=== PATIENT | female | born 1945 | race Caucasian/White ===

== ENCOUNTER 2025-10-08 11:54 | Inpatient (IN) | payer MEDICARE, MEDICAID ==
[~2025-10-08] VITALS: Ht 154.9 cm; Wt 68.1 kg
[2025-10-08 12:55] LABS: GLUCOMETER DEV NAME(LOC) ER.7; GLUCOSE,POINT OF CARE 161 MG/DL (70-110)
[2025-10-08] MEDS: SODIUM CHLORIDE 0.9% 1,000 ML IV ONE (13:08)
[2025-10-08 13:28] LABS: CALCIUM, TOTAL 8.5 mg/dL (8.8-10.5); CREATININE 1.29 mg/dL (0.60-1.30); GLOMERULAR FILTR. RATE CALC 40 mL/min (>60); GLUCOSE,RANDOM 174 mg/dL (70-110); SODIUM SERUM 133 mmol/L (136-145); UREA NITROGEN, BLOOD 38 mg/dL (7-18)
[2025-10-08 13:35] LABS: PLATELET COUNT (AUTO) 452 K/uL (150-450); RED BLOOD CELL COUNT(AUTO) 3.10 MIL/uL (4.00-5.20); RED CELL DISTRIBUTION WIDTH 19.1 % (11.5-14.5); WHITE BLOOD COUNT (AUTO) 15.4 K/uL (4.5-11.0)
[2025-10-08 13:39] LABS: LACTIC ACID 1.2 mmol/L (0.4-2.0)
[2025-10-08 14:10] LABS: TROPONIN I-HIGH SENSITIVITY 16 ng/L (<51)
[2025-10-08] MEDS: PIPERACILLIN SODIUM/TAZOBACTAM 2.25 GM in DEXTROSE 5%-WATER 50 ML IV SCH (15:22)
[2025-10-08] MEDS: VANCOMYCIN 1.25 GM/WATER(PEG) 250 ML IV ONE (15:24)
[2025-10-08] MEDS ORDERED: ATROPINE SULFATE 0.1 MG/ML 10 ML SYRINGE IVP ONE (15:32)
[2025-10-08] MEDS: ATROPINE SULFATE 1 MG/ML VIAL IVP ONE (15:33)
[2025-10-08] MEDS: ATROPINE SULFATE 0.1 MG/ML 10 ML SYRINGE IVP ONE (15:36)
[2025-10-08] MEDS ORDERED: ONDANSETRON HCL 4 MG/2 ML VIAL IVP PRN (15:45)
[2025-10-08] MEDS ORDERED: ACETAMINOPHEN 325 MG TABLET PO PRN (15:45)
[2025-10-08] MEDS: HEPARIN SODIUM,PORCINE 5,000 UNITS/ML VIAL SQ SCH (16:45)
[2025-10-08 17:11] LABS: ABG BASE EXCESS 8.3 mmol/L (-2.0-3.0); ABG CARBOXYHEMOGLOBIN 2.1 % (0.5-1.5); ABG HCO3 31.4 mmol/L (21.0-28.0); ABG METHEMOGLOBIN 0.8 % (0.0-1.5); ABG OXYGEN CONTENT 11.7 mL/dL (15.0-23.0); ABG OXYGEN SATURATION 98.2 % (94.0-98.0); ABG OXYHEMOGLOBIN 95.4 % (94.0-98.0); ABG PCO2 42 mmHg (32.0-45.0); ABG PH 7.496 (7.350-7.450); ABG TOTAL HEMOGLOBIN 8.6 G/dL (12.0-16.0); FRACTIONATED INSPIRED OXYGEN 32.0 % (21-100.0); PO2, ARTERIAL BG 90.3 mmHg (83.0-108.0); SOURCE, BLOOD GAS ARTERIAL; TEMPERATURE, FAHRENHEIT, BG 98.5 FAHREN (96.0-98.6)
[2025-10-08 17:12] LABS: ABG A-A DIFF O2 89.0 mmHg (10-20.0); ALLEN TEST, BLOOD GAS Positive; O2 DEVICE,BLOOD GAS CANNULA (ROOM AIR); PATIENT RATE, BG 36.0 min.; SITE, BLOOD GAS LFT RADIAL
[2025-10-08] MEDS: ALBUMIN HUMAN 5%-12.5GM/250ML 250 ML IV ONE (17:27)
[2025-10-08] MEDS ORDERED: POTASSIUM CHLORIDE 20 MEQ ER TABLET PO PRN (20:15)
[2025-10-08 20:30] VITALS: BP 129/67; PULSE 87; RESP 40; TEMP 97.2; O2SAT 93
[2025-10-08] MEDS: DOCUSATE SODIUM 100 MG CAPSULE PO SCH (21:00)
[2025-10-08 23:03] VITALS: TEMP 97.2
[2025-10-08] MEDS ORDERED: SODIUM CHLORIDE 0.9% 100 ML ONE (23:04)
[2025-10-08] MEDS ORDERED: IOHEXOL 350 MG/ML 100 ML VIAL ONE (23:04)
[2025-10-09] VITALS (22 sets, daily range): BP systolic 98–139; BP diastolic 47–89; PULSE 49–72; RESP 16–25; TEMP 96.6–97.6; O2SAT 95–100
[2025-10-09] MEDS: ALBUTEROL SULFATE 2.5 MG/0.5 ML NEB SOLUTION NEB SCH (00:49)
[2025-10-09] MEDS: PANTOPRAZOLE SODIUM 40 MG/VIAL IVP SCH (00:49)
[2025-10-09] MEDS: IPRATROPIUM BROMIDE 0.5 MG/2.5 ML NEB SOLUTION NEB SCH (00:49)
[2025-10-09] MEDS: CHLORHEXIDINE GLUCONATE 2% TOWELETTE [2'S/6'S] TP SCH (00:50)
[2025-10-09] MEDS: ETHYL ALCOHOL 62% ANTISEPTIC NASAL SANITIZER 0.6 ML AMPUL NASAL SCH (00:52)
[2025-10-09] MEDS ORDERED: SODIUM CHLORIDE 0.9% 500 ML IV ONE (01:39)
[2025-10-09] MEDS: PIPERACILLIN SODIUM/TAZOBACTAM 2.25 GM in DEXTROSE 5%-WATER 50 ML IV SCH ×2 (01:48→15:30)
[2025-10-09] MEDS: POTASSIUM CHL 10 MEQ/WATER 50 ML IV PRN (02:06)
[2025-10-09 05:54] LABS: PLATELET COUNT (AUTO) 297 K/uL (150-450); RED BLOOD CELL COUNT(AUTO) 2.85 MIL/uL (4.00-5.20); RED CELL DISTRIBUTION WIDTH 18.7 % (11.5-14.5); WHITE BLOOD COUNT (AUTO) 12.6 K/uL (4.5-11.0)
[2025-10-09 06:22] LABS: CALCIUM, TOTAL 8.3 mg/dL (8.8-10.5); CREATININE 1.52 mg/dL (0.60-1.30); GLOMERULAR FILTR. RATE CALC 33.0 mL/min (>60); GLUCOSE,RANDOM 228.0 mg/dL (70-110); SODIUM SERUM 132.0 mmol/L (136-145); UREA NITROGEN, BLOOD 49.0 mg/dL (7-18)
[2025-10-09] MEDS: VANCOMYCIN 750 MG/WATER(PEG) 150 ML IV SCH (08:54)
[2025-10-09] MEDS ORDERED: DEXTROSE 50%-WATER 25 GM/50 ML SYRINGE IVP PRN (13:15)
[2025-10-09 18:28] LABS: PLATELET COUNT (AUTO) 324 K/uL (150-450); RED BLOOD CELL COUNT(AUTO) 2.49 MIL/uL (4.00-5.20); RED CELL DISTRIBUTION WIDTH 18.8 % (11.5-14.5); WHITE BLOOD COUNT (AUTO) 12.4 K/uL (4.5-11.0)
[2025-10-09] MEDS: PANTOPRAZOLE SODIUM 80 MG in SODIUM CHLORIDE 0.9% 100 ML IV SCH (19:00)
[2025-10-09] MEDS ORDERED: PANTOPRAZOLE SODIUM 80 MG in SODIUM CHLORIDE 0.9% 100 ML IV SCH (19:00)
[2025-10-09] MEDS: INSULIN LISPRO 100 UNITS/ML SQ PRN (19:42)
[2025-10-09 20:05] LABS: GLUCOMETER DEV NAME(LOC) ICUN.7; GLUCOSE,POINT OF CARE 223 MG/DL (70-110)
[2025-10-09] MEDS: PANTOPRAZOLE SODIUM 40 MG/VIAL IVP ONE (20:33)
[2025-10-09] MEDS ORDERED: INSULIN GLARGINE,HUM.REC.ANLOG 100 UNITS/ML SQ SCH (21:00)
[2025-10-09] MEDS: SODIUM CHLORIDE 0.9% 1,000 ML IV SCH (22:25)
[2025-10-10] VITALS (20 sets, daily range): BP systolic 94–127; BP diastolic 38–64; PULSE 51–86; RESP 12–20; TEMP 93.3–99.7; O2SAT 94–100
[2025-10-10 00:36] LABS: GLUCOMETER DEV NAME(LOC) ICU.S7; GLUCOSE,POINT OF CARE 178 MG/DL (70-110)
[2025-10-10 01:07] LABS: PLATELET COUNT (AUTO) 255 K/uL (150-450); RED BLOOD CELL COUNT(AUTO) 2.30 MIL/uL (4.00-5.20); RED CELL DISTRIBUTION WIDTH 19.2 % (11.5-14.5); WHITE BLOOD COUNT (AUTO) 11.3 K/uL (4.5-11.0)
[2025-10-10] MEDS: FUROSEMIDE 40 MG/4 ML VIAL IVP ONE (03:59)
[2025-10-10 06:06] LABS: GLUCOMETER DEV NAME(LOC) 4E.2; GLUCOSE,POINT OF CARE 164 MG/DL (70-110)
[2025-10-10] MEDS ORDERED: ALBUMIN HUMAN 25%-12.5GM/50ML IV BOTTLE IV ONE (07:43)
[2025-10-10] MEDS: ATORVASTATIN CALCIUM 40 MG TABLET GT SCH (08:30)
[2025-10-10] MEDS ORDERED: ASPIRIN 81 MG CHEWABLE TABLET GT SCH (09:00)
[2025-10-10] MEDS ORDERED: VANCOMYCIN HCL 1 GM/D5% WATER 200 ML IV PRN (11:15)
[2025-10-10 11:19] LABS: ABG BASE EXCESS 2.9 mmol/L (-2.0-3.0); ABG CARBOXYHEMOGLOBIN 2.1 % (0.5-1.5); ABG HCO3 26.9 mmol/L (21.0-28.0); ABG METHEMOGLOBIN 0.9 % (0.0-1.5); ABG OXYGEN CONTENT 11.8 mL/dL (15.0-23.0); ABG OXYGEN SATURATION 100.0 % (94.0-98.0); ABG OXYHEMOGLOBIN 97.0 % (94.0-98.0); ABG PCO2 38 mmHg (32.0-45.0); ABG PH 7.462 (7.350-7.450); ABG TOTAL HEMOGLOBIN 8.4 G/dL (12.0-16.0); FLOW, BLOOD GAS 2.00 L/min (0.00-15.00); FRACTIONATED INSPIRED OXYGEN 28.0 % (21-100.0); O2 DEVICE,BLOOD GAS CANNULA (ROOM AIR); PATIENT RATE, BG 14.0 min.; PO2, ARTERIAL BG 135.7 mmHg (83.0-108.0); SITE, BLOOD GAS LFT BRACHIAL; SOURCE, BLOOD GAS ARTERIAL; TEMPERATURE, FAHRENHEIT, BG 94.5 FAHREN (96.0-98.6)
[2025-10-10] MEDS: *CLINICAL-MEROPENEM DOSING CLINICAL ONE (14:52)
[2025-10-10] MEDS: MEROPENEM 1 GM in SODIUM CHLORIDE 0.9% 50 ML IV ONE (15:29)
[2025-10-10 18:31] LABS: GLUCOMETER DEV NAME(LOC) 5S.2E; GLUCOSE,POINT OF CARE 173 MG/DL (70-110)
[2025-10-10 21:40] LABS: PLATELET COUNT (AUTO) 320 K/uL (150-450); RED BLOOD CELL COUNT(AUTO) 2.78 MIL/uL (4.00-5.20); RED CELL DISTRIBUTION WIDTH 20.2 % (11.5-14.5); WHITE BLOOD COUNT (AUTO) 16.5 K/uL (4.5-11.0)
[2025-10-10 21:49] LABS: CALCIUM, TOTAL 7.5 mg/dL (8.8-10.5); CREATININE 1.47 mg/dL (0.60-1.30); GLOMERULAR FILTR. RATE CALC 34.0 mL/min (>60); GLUCOSE,RANDOM 196.0 mg/dL (70-110); SODIUM SERUM 133.0 mmol/L (136-145); UREA NITROGEN, BLOOD 33.0 mg/dL (7-18)
[2025-10-11] VITALS (19 sets, daily range): BP systolic 101–139; BP diastolic 30–62; PULSE 52–72; RESP 16–24; TEMP 94–99.3; O2SAT 96–100
[2025-10-11 08:57] LABS: PLATELET COUNT (AUTO) 336 K/uL (150-450); RED BLOOD CELL COUNT(AUTO) 2.92 MIL/uL (4.00-5.20); RED CELL DISTRIBUTION WIDTH 20.2 % (11.5-14.5); WHITE BLOOD COUNT (AUTO) 13.7 K/uL (4.5-11.0)
[2025-10-11 09:11] LABS: CALCIUM, TOTAL 7.6 mg/dL (8.8-10.5); CREATININE 1.03 mg/dL (0.60-1.30); GLOMERULAR FILTR. RATE CALC 51.0 mL/min (>60); GLUCOSE,RANDOM 151.0 mg/dL (70-110); SODIUM SERUM 137.0 mmol/L (136-145); UREA NITROGEN, BLOOD 24.0 mg/dL (7-18)
[2025-10-11 10:02] LABS: PLATELET COUNT (AUTO) 347 K/uL (150-450); RED BLOOD CELL COUNT(AUTO) 2.99 MIL/uL (4.00-5.20); RED CELL DISTRIBUTION WIDTH 20.4 % (11.5-14.5); WHITE BLOOD COUNT (AUTO) 14.4 K/uL (4.5-11.0)
[2025-10-11 10:13] LABS: CALCIUM, TOTAL 7.6 mg/dL (8.8-10.5); CREATININE 0.79 mg/dL (0.60-1.30); GLOMERULAR FILTR. RATE CALC > 60 mL/min (>60); GLUCOSE,RANDOM 138 mg/dL (70-110); SODIUM SERUM 135 mmol/L (136-145); UREA NITROGEN, BLOOD 14 mg/dL (7-18)
[2025-10-11 10:17] LABS: ASPARTATE AMINOTRANSFERASE 19 U/L (15-37); TOTAL PROTEIN, SERUM 5.5 g/dL (6.4-8.2)
[2025-10-11] MEDS: MEROPENEM 500 MG in SODIUM CHLORIDE 0.9% 50 ML IV SCH (17:26)
[2025-10-11 17:50] LABS: GLUCOMETER DEV NAME(LOC) 5N.2C; GLUCOSE,POINT OF CARE 166 MG/DL (70-110)
[2025-10-11 17:51] LABS: GLUCOMETER DEV NAME(LOC) 5N.2C; GLUCOSE,POINT OF CARE 132 MG/DL (70-110)
[2025-10-11 17:51] LABS: GLUCOMETER DEV NAME(LOC) 5N.2C; GLUCOSE,POINT OF CARE 159 MG/DL (70-110)
[2025-10-11] MEDS: FOLIC ACID/VIT B COMPLEX AND C TABLET PO SCH (18:35)
[2025-10-11] MEDS: PANTOPRAZOLE SODIUM 40 MG/VIAL IVP SCH (20:49)
[2025-10-11] MEDS ORDERED: SODIUM CHLORIDE 0.9% 500 ML IV ONE (22:22)
[2025-10-12] VITALS (9 sets, daily range): BP systolic 109–135; BP diastolic 44–95; PULSE 63–78; RESP 17–20; TEMP 97.5–98; O2SAT 98–100
[2025-10-12 06:39] LABS: PLATELET COUNT (AUTO) 320 K/uL (150-450); RED BLOOD CELL COUNT(AUTO) 3.01 MIL/uL (4.00-5.20); RED CELL DISTRIBUTION WIDTH 20.4 % (11.5-14.5); WHITE BLOOD COUNT (AUTO) 10.7 K/uL (4.5-11.0)
[2025-10-12 06:48] LABS: CALCIUM, TOTAL 7.7 mg/dL (8.8-10.5); CREATININE 1.11 mg/dL (0.60-1.30); GLOMERULAR FILTR. RATE CALC 47.0 mL/min (>60); GLUCOSE,RANDOM 164.0 mg/dL (70-110); SODIUM SERUM 137.0 mmol/L (136-145); UREA NITROGEN, BLOOD 21.0 mg/dL (7-18)
[2025-10-12] MEDS: VANCOMYCIN 1GM/WATER(PEG/NADA) 200 ML IV ONE (11:31)
[2025-10-12] MEDS: LEVOTHYROXINE SODIUM 100 MCG VIAL IVP ONE (12:50)
[2025-10-12] MEDS: HYDROCORTISONE SOD SUCC 250 MG/2 ML VIAL IVP ONE (14:12)
[2025-10-12] MEDS: FERROUS GLUCONATE 324 MG TABLET GT SCH (17:56)
[2025-10-13] VITALS (11 sets, daily range): BP systolic 119–137; BP diastolic 43–68; PULSE 58–86; RESP 17–20; TEMP 97.7–98.1; O2SAT 97–100
[2025-10-13] MEDS: LEVOTHYROXINE SODIUM 25 MCG TABLET GT SCH (06:00)
[2025-10-13 07:42] LABS: PLATELET COUNT (AUTO) 285 K/uL (150-450); RED BLOOD CELL COUNT(AUTO) 3.33 MIL/uL (4.00-5.20); RED CELL DISTRIBUTION WIDTH 20.0 % (11.5-14.5); WHITE BLOOD COUNT (AUTO) 11.9 K/uL (4.5-11.0)
[2025-10-13 08:00] LABS: CALCIUM, TOTAL 7.6 mg/dL (8.8-10.5); CREATININE 1.46 mg/dL (0.60-1.30); GLOMERULAR FILTR. RATE CALC 34.0 mL/min (>60); GLUCOSE,RANDOM 353.0 mg/dL (70-110); SODIUM SERUM 137.0 mmol/L (136-145); UREA NITROGEN, BLOOD 30.0 mg/dL (7-18)
[2025-10-13] MEDS: EPOETIN ALFA 10,000 UNITS/ML VIAL SQ SCH (09:03)
[2025-10-13] MEDS: MIDODRINE HCL 5 MG TABLET PO ONE (17:02)
[2025-10-13] MEDS: ALBUMIN HUMAN 25%-25GM/100ML 100 ML IV ONE (17:03)
[2025-10-13 20:46] LABS: GLUCOMETER DEV NAME(LOC) 5S.2E; GLUCOSE,POINT OF CARE 161 MG/DL (70-110)
[2025-10-13 20:46] LABS: GLUCOMETER DEV NAME(LOC) 5S.2E; GLUCOSE,POINT OF CARE 152 MG/DL (70-110)
[2025-10-13 20:46] LABS: GLUCOMETER DEV NAME(LOC) 5S.2E; GLUCOSE,POINT OF CARE 156 MG/DL (70-110)
[2025-10-13 20:47] LABS: GLUCOMETER DEV NAME(LOC) 5S.2E; GLUCOSE,POINT OF CARE 324 MG/DL (70-110)
[2025-10-13 20:47] LABS: GLUCOMETER DEV NAME(LOC) 5S.2E; GLUCOSE,POINT OF CARE 327 MG/DL (70-110)
[2025-10-13 20:47] LABS: GLUCOMETER DEV NAME(LOC) 5S.2E; GLUCOSE,POINT OF CARE 242 MG/DL (70-110)
[2025-10-13 20:47] LABS: GLUCOMETER DEV NAME(LOC) 5S.2E; GLUCOSE,POINT OF CARE 207 MG/DL (70-110)
[2025-10-13 20:47] LABS: GLUCOMETER DEV NAME(LOC) 5S.2E; GLUCOSE,POINT OF CARE 303 MG/DL (70-110)
[2025-10-14 15:51] LABS: GLUCOMETER DEV NAME(LOC) 5N.1D; GLUCOSE,POINT OF CARE 201 MG/DL (70-110)
== END 2025-10-13 17:40 | DRG 871 ==
LOC: EMS 11:55 → EDH 15:43 → ICU 21:00 → 4E 10-10 05:20 → 5S 10-10 11:32
PROVIDERS: ADMIT Internal Medicine; ATTEND Internal Medicine
PROC: 5A1D70Z Performance of Urinary Filtration, Intermittent, Less than 6 Hours Per Day (ICD-10-PCS; 2025-10-09)
PROC: 30233N1 Transfusion of Nonautologous Red Blood Cells into Peripheral Vein, Percutaneous Approach (ICD-10-PCS; principal; 2025-10-10)
PROC: 5A1D70Z Performance of Urinary Filtration, Intermittent, Less than 6 Hours Per Day (ICD-10-PCS; 2025-10-11)
DX: A41.9 Sepsis, unspecified organism (principal); G93.41 Metabolic encephalopathy; N18.6 End stage renal disease; J15.69 Pneumonia due to other Gram-negative bacteria; J96.91 Respiratory failure, unspecified with hypoxia; L89.154 Pressure ulcer of sacral region, stage 4; L89.224 Pressure ulcer of left hip, stage 4; I13.2 Hypertensive heart and chronic kidney disease with heart failure and with stage 5 chronic kidney disease, or end stage renal disease; Z66 Do not resuscitate; J44.0 Chronic obstructive pulmonary disease with (acute) lower respiratory infection; K92.2 Gastrointestinal hemorrhage, unspecified; Z99.2 Dependence on renal dialysis; E46 Unspecified protein-calorie malnutrition; D63.1 Anemia in chronic kidney disease; E11.22 Type 2 diabetes mellitus with diabetic chronic kidney disease; E03.9 Hypothyroidism, unspecified; F03.90 Unspecified dementia, unspecified severity, without behavioral disturbance, psychotic disturbance, mood disturbance, and anxiety; E87.1 Hypo-osmolality and hyponatremia; J98.11 Atelectasis; E78.5 Hyperlipidemia, unspecified; J39.8 Other specified diseases of upper respiratory tract; R13.10 Dysphagia, unspecified; T68.XXXA Hypothermia, initial encounter; Y95 Nosocomial condition; X31.XXXA Exposure to excessive natural cold, initial encounter; Z74.01 Bed confinement status; Z86.73 Personal history of transient ischemic attack (TIA), and cerebral infarction without residual deficits; Z93.1 Gastrostomy status; Z68.28 Body mass index [BMI] 28.0-28.9, adult
CPT/HCPCS: 70450; 71045; 71275; 80048; 80053; 80202; 82805; 82962; 83605; 83735; 83880; 84100; 84132; 84439; 84443; 84481; 84484; 85014; 85018; 85025; 86850; 86900; 86901; 86923; 87040; 87070; 87077; 87081; 87186; 87205; 87340; 90935; 93005; 94640; 94760; 96361; 96365; 96367; 96368; 96372; 96375; 99285; G0378; J0461; J0885; J1644; J1720; J1815; J1938; J2185; J2470; J2543; J3480; J3490; J7030; J7040; J7050; J7060; P9016; P9041; P9046; P9047; 36415-L1; 36415-TC; J7613